=== PATIENT | female | born 1950 | race Caucasian/White ===

== ENCOUNTER 2021-08-21 07:39 | Day surgery (SDC) | payer MEDICARE | END 2021-08-21 17:17 | disposition home or self-care (01) | LOC: SDC-PAIN 07:39 | PROVIDERS: ATTEND Psychiatry & Neurology Pain Medicine | DX: Z53.8 Procedure and treatment not carried out for other reasons (principal); E11.9 Type 2 diabetes mellitus without complications | CPT/HCPCS: 82947 ==

== ENCOUNTER 2021-09-04 10:25 | Day surgery (SDC) | payer MEDICARE ==
[2021-09-04] MEDS ORDERED: Depo-Medrol 40 MG/ML IM ONE (10:26)
[2021-09-04] MEDS ORDERED: Sodium Chloride 0.9(Preservative Free) 10 ML IJ ONE (10:26)
[2021-09-04] MEDS ORDERED: Lactated Ringers 1,000 ML IV ONE (12:28)
[2021-09-04] MEDS ORDERED: DIPRIVAN 200 MG/20 ML IV ONE (13:04)
--- NOTE | 2021-09-04 14:07 | XRAY ---
Indication: Right L4-S1 transforaminal WENDI. Intraoperative fluoroscopy provided for 49 seconds. 5 digital spot image submitted for interpretation demonstrates posterior needle tips projecting over the expected right L4 and L5 nerve roots. Small amount of contrast injected for needle tip placement. Correlate with intraoperative findings/report.
--- NOTE | 2021-09-04 14:48 | XRAY ---
49 seconds of fluoroscopy was used in surgery for a right L4-S1 transforaminal WENDI.
== END 2021-09-04 13:35 | disposition home or self-care (01) ==
LOC: SDC-PAIN 10:25
PROVIDERS: ATTEND Psychiatry & Neurology Pain Medicine
DX: M54.16 Radiculopathy, lumbar region (principal); E11.9 Type 2 diabetes mellitus without complications; Z79.899 Other long term (current) drug therapy
CPT/HCPCS: 64483; 64484; 72100; 77003; 82947; J1030; J2704; Q9966

== ENCOUNTER 2021-09-25 12:28 | Day surgery (SDC) | payer MEDICARE ==
[2021-09-25] MEDS ORDERED: Marcaine Mpf 0.5% Vial 30 Ml IJ ONE (12:29)
[2021-09-25] MEDS ORDERED: Depo-Medrol 40 MG/ML IM ONE (12:29)
[2021-09-25] MEDS ORDERED: DIPRIVAN 200 MG/20 ML IV ONE (15:03)
[2021-09-25] MEDS ORDERED: Lactated Ringers 1,000 ML IV ONE (15:41)
--- NOTE | 2021-09-25 16:46 | XRAY ---
4 seconds of fluoroscopy was used in surgery for a right knee intra-articular injection.
--- NOTE | 2021-09-25 16:47 | XRAY ---
Indication: Right knee injection. Intraoperative fluoroscopy provided for 4 seconds. Single digital spot image submitted for interpretation demonstrates needle tip projecting over the right femur intercondylar notch. Small amount of contrast injected for needle tip placement. Correlate with intraoperative findings/report.
== END 2021-09-25 15:22 | disposition home or self-care (01) ==
LOC: SDC-PAIN 12:28
PROVIDERS: ATTEND Psychiatry & Neurology Pain Medicine
DX: M17.11 Unilateral primary osteoarthritis, right knee (principal); E11.9 Type 2 diabetes mellitus without complications; Z79.899 Other long term (current) drug therapy
CPT/HCPCS: 20610; 73560; 77002; 82947; J1030; J2704; Q9966

== ENCOUNTER 2021-10-23 08:45 | Day surgery (SDC) | payer MEDICARE ==
[2021-10-23] MEDS ORDERED: LIDOCAINE HCL 2% 100 MG/5 ML IJ ONE (08:46)
--- NOTE | 2021-10-23 12:23 | XRAY ---
Indication: Bilateral L4-S1 MBB. Intraoperative fluoroscopy provided for 13 seconds. 2 digital spot images submitted for interpretation demonstrate posterior needle tips projecting over the expected left and right L4-S1 nerve roots. Correlate with intraoperative findings/report.
[2021-10-23] MEDS ORDERED: Lactated Ringers 1,000 ML IV ONE (12:25)
--- NOTE | 2021-10-23 15:26 | XRAY ---
13 seconds fluoroscopy time in surgery for bilateral L4-S1 MBB.
== END 2021-10-23 11:38 | disposition home or self-care (01) ==
LOC: SDC-PAIN 08:45
PROVIDERS: ATTEND Psychiatry & Neurology Pain Medicine
DX: M47.816 Spondylosis without myelopathy or radiculopathy, lumbar region (principal); E11.9 Type 2 diabetes mellitus without complications; Z79.899 Other long term (current) drug therapy
CPT/HCPCS: 64493; 64494; 72020; 77002; 82947

== ENCOUNTER 2021-12-04 10:25 | Day surgery (SDC) | payer MEDICARE ==
[2021-12-04] MEDS ORDERED: Marcaine Mpf 0.5% Vial 30 Ml IJ ONE (10:26)
[2021-12-04] MEDS ORDERED: DIPRIVAN 200 MG/20 ML IV ONE (11:43)
[2021-12-04] MEDS ORDERED: Lactated Ringers 1,000 ML IV ONE (13:07)
--- NOTE | 2021-12-04 17:24 | XRAY ---
Indication: Bilateral L4-S1 MBB. Intraoperative fluoroscopy provided for 16 seconds. Single digital spot image submitted for interpretation demonstrates posterior needle tips projecting over the expected left and right L4-S1 nerve roots. Correlate with intraoperative findings/report.
--- NOTE | 2021-12-04 17:45 | XRAY ---
16 seconds fluoroscopy time in surgery for bilateral L4-S1 MBB.
== END 2021-12-04 12:10 | disposition home or self-care (01) ==
LOC: SDC-PAIN 10:25
PROVIDERS: ATTEND Psychiatry & Neurology Pain Medicine
DX: M47.816 Spondylosis without myelopathy or radiculopathy, lumbar region (principal); E11.9 Type 2 diabetes mellitus without complications; Z79.899 Other long term (current) drug therapy
CPT/HCPCS: 64493; 64494; 72020; 77002; 82947; J2704

== ENCOUNTER 2022-01-22 08:29 | Day surgery (SDC) | payer MEDICARE ==
[2022-01-22] MEDS ORDERED: LIDOCAINE HCL 1% 50 MG/5 ML VL PF IJ ONE (08:30)
[2022-01-22] MEDS ORDERED: BUPIVACAINE 0.5% VIAL IJ ONE (08:30)
[2022-01-22] MEDS ORDERED: Depo-Medrol 40 MG/ML IM ONE (08:30)
[2022-01-22] MEDS ORDERED: DIPRIVAN 200 MG/20 ML IV ONE ×2 (10:03→10:04)
[2022-01-22] MEDS ORDERED: Lactated Ringers 1,000 ML IV ONE (11:25)
--- NOTE | 2022-01-22 12:13 | XRAY ---
Indication: Right L4-S1 RFA. Intraoperative fluoroscopy provided for 21 seconds. 5 digital spot image submitted for interpretation demonstrates posterior needle tips projecting over the expected right L4-S1 nerve roots. Correlate with intraoperative findings/report.
--- NOTE | 2022-01-22 12:26 | XRAY ---
21 seconds of fluoroscopy was used in surgery for a right L4-S1 RFA.
== END 2022-01-22 10:27 | disposition home or self-care (01) ==
LOC: SDC-PAIN 08:29
PROVIDERS: ATTEND Psychiatry & Neurology Pain Medicine
DX: M47.816 Spondylosis without myelopathy or radiculopathy, lumbar region (principal); E11.9 Type 2 diabetes mellitus without complications; Z79.899 Other long term (current) drug therapy
CPT/HCPCS: 64635; 64636; 72100; 77002; 82947; J1030; J2001; J2704

== ENCOUNTER 2022-02-05 08:24 | Day surgery (SDC) | payer MEDICARE ==
[2022-02-05] MEDS ORDERED: Xylocaine 1% Vial 30 ML PF IJ ONE (08:25)
[2022-02-05] MEDS ORDERED: BUPIVACAINE 0.5% VIAL IJ ONE (08:25)
[2022-02-05] MEDS ORDERED: Depo-Medrol 40 MG/ML IM ONE (08:25)
[2022-02-05] MEDS ORDERED: DIPRIVAN 200 MG/20 ML IV ONE (09:21)
--- NOTE | 2022-02-05 11:44 | XRAY ---
Indication: Left L4-S1 RFA. Intraoperative fluoroscopy provided for 28 seconds. 5 digital spot image submitted for interpretation demonstrates posterior needle tips projecting over the expected left L4-S1 nerve roots. Correlate with intraoperative findings/report.
--- NOTE | 2022-02-05 12:11 | XRAY ---
28 seconds of fluoroscopy was used in surgery for a left L4-S1 RFA.
[2022-02-05] MEDS ORDERED: Lactated Ringers 1,000 ML IV ONE (13:05)
== END 2022-02-05 09:46 | disposition home or self-care (01) ==
LOC: SDC-PAIN 08:24
PROVIDERS: ATTEND Psychiatry & Neurology Pain Medicine
DX: M47.816 Spondylosis without myelopathy or radiculopathy, lumbar region (principal); E11.9 Type 2 diabetes mellitus without complications; Z79.899 Other long term (current) drug therapy
CPT/HCPCS: 64635; 64636; 72100; 77002; 82947; 99100; J1030; J2001; J2704

== ENCOUNTER 2022-08-06 09:44 | Day surgery (SDC) | payer MEDICARE ==
[2022-08-06] MEDS ORDERED: Depo-Medrol 40 MG/ML IM ONE (09:45)
[2022-08-06] MEDS ORDERED: BUPIVACAINE 0.5% VIAL IJ ONE (09:45)
[2022-08-06] MEDS ORDERED: DIPRIVAN 200 MG/20 ML IV ONE (11:28)
--- NOTE | 2022-08-06 12:30 | XRAY ---
Indication: Right SI joint injection. Intraoperative fluoroscopy provided for 8 seconds. 2 digital spot images submitted for interpretation demonstrates posterior needle tip projecting over the right SI joint. Correlate with intraoperative findings/report. Incidental partially visualized right hip arthroplasty.
--- NOTE | 2022-08-06 12:40 | XRAY ---
8 seconds of fluoroscopy was used in surgery for a right sacroiliac joint injection.
[2022-08-06] MEDS ORDERED: Lactated Ringers 1,000 ML IV ONE (14:05)
== END 2022-08-06 12:00 | disposition home or self-care (01) ==
LOC: SDC-PAIN 09:44
PROVIDERS: ATTEND Psychiatry & Neurology Pain Medicine
DX: M46.1 Sacroiliitis, not elsewhere classified (principal); E11.9 Type 2 diabetes mellitus without complications; Z79.899 Other long term (current) drug therapy
CPT/HCPCS: 01992; 27096; 72170; 77002; 82947; 99100; G0260; J1030; J2704

== ENCOUNTER 2024-12-14 08:04 | Day surgery (SDC) | payer MEDICARE ==
[2024-12-14] MEDS ORDERED: BUPIVACAINE 0.5% VIAL IJ ONE (08:05)
[2024-12-14] MEDS ORDERED: methylPREDNISolone acetate IM ONE (08:05)
[2024-12-14] MEDS ORDERED: propofoL IV ONE (09:20)
--- NOTE | 2024-12-14 10:54 | XRAY ---
Indication: Right SI joint injection. Intraoperative fluoroscopy provided for 8 seconds. Single digital spot image submitted for interpretation demonstrates posterior needle tip projecting over right SI joint. Small amount of contrast injected for needle tip placement. Correlate with intraoperative findings/report.
--- NOTE | 2024-12-14 10:56 | XRAY ---
8 seconds of fluoroscopy was used in surgery for a right sacroiliac joint injection.
[2024-12-14] MEDS ORDERED: Lactated Ringers 1,000 ML IV ONE (11:39)
== END 2024-12-14 09:50 | disposition home or self-care (01) ==
LOC: SDC-PAIN 08:04
PROVIDERS: ATTEND Psychiatry & Neurology Pain Medicine
DX: M46.1 Sacroiliitis, not elsewhere classified (principal); E11.9 Type 2 diabetes mellitus without complications; M53.3 Sacrococcygeal disorders, not elsewhere classified

== ENCOUNTER 2025-03-22 15:45 | Day surgery (SDC) | payer MEDICARE ==
[2025-03-22] MEDS ORDERED: methylPREDNISolone acetate IM ONE (15:46)
[2025-03-22] MEDS ORDERED: LIDOCAINE HCL 1% 50 MG/5 ML VL IJ ONE (15:46)
[2025-03-22] MEDS ORDERED: BUPIVACAINE 0.5% VIAL IJ ONE (15:46)
--- NOTE | 2025-03-23 08:37 | XRAY ---
Indication: Right greater trochanter bursa injection. Intraoperative fluoroscopy provided for 12 seconds. Single digital spot image submitted for interpretation demonstrates needle tip projecting lateral to right greater trochanter. Small amount of contrast injected for needle tip placement. Correlate with intraoperative findings/report. Incidental incompletely visualized right hip arthroplasty.
--- NOTE | 2025-03-23 08:38 | XRAY ---
12 seconds of fluoroscopy were used in surgery for a right greater trochanteric bursa injection.
== END 2025-03-22 17:15 | disposition home or self-care (01) ==
LOC: SDC-PAIN 15:45
PROVIDERS: ATTEND Psychiatry & Neurology Pain Medicine
DX: M70.61 Trochanteric bursitis, right hip (principal); E11.9 Type 2 diabetes mellitus without complications